=== PATIENT | male | born 1985 | race Caucasian/White ===

== ENCOUNTER 2023-10-29 19:22 | Emergency (ER) | payer SELFPAY ==
[2023-10-29 19:24] VITALS: BP 127/83
[2023-10-29 19:56] VITALS: BMI 23.4
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
[2023-10-29] MEDS: MOTRIN 600 MG PO (20:25)
[2023-10-29 20:58] VITALS: BP 124/80
== END 2023-10-29 20:59 | disposition home or self-care (01) ==
LOC: EMR 19:22
PROVIDERS: EMERGENCY PHYSICIAN Emergency Medicine
DX: S43.102A Unspecified dislocation of left acromioclavicular joint, initial encounter (principal); V49.40XA Driver injured in collision with unspecified motor vehicles in traffic accident, initial encounter
CPT/HCPCS: 99283; 73030